=== PATIENT | female | born 1970 | race Two or more races ===

== ENCOUNTER 2017-06-13 00:15 | Emergency (ER) | payer MEDICAID ==
[~2017-06-13] VITALS: Ht 157.5 cm; Wt 72.6 kg
[~2017-06-13 00:15] MED LIST: AMITRIPTYLINE100 MG ORAL; FAMOTIDINE20 MG ORAL; FLUOXETINE HCL10 MG ORAL; GABAPENTIN600 MG ORAL; KEFLEX500 MG ORAL; PROZAC10 MG ORAL; TRAZODONE HCL100 MG ORAL
--- NOTE | 2017-06-13 00:19 | Emergency Room Report ---
History of Present Illness General Chief Complaint: Altered Level of Consciousness Source: Medical Record, EMS Present Illness HPI Is a 47-year-old female with history of diabetes and high blood pressure. She presents with chief complaint of altered mental status. She was found unresponsive at a nearby bus stop. There were 5 or 6 empty cans of beer next to her. EMS brought her in for evaluation. Unable to get any history from this patient. She was just here last month for alcohol intoxication and hyperglycemia. I also found to cans of beer in her purse along with her IDs and medication. Allergies: Coded Allergies: No Known Allergies (Unverified , 05/29/17) UNABLE TO ASSESS (Unverified , 06/13/17) Patient History Past Medical History: see triage record, old chart reviewed, DM, HTN Past Surgical History: other Pertinent Family History: none Social History: Reports: alcohol use; Denies: smoking Now: No Immunizations: other Reviewed Nursing Documentation: PMH: Agreed; PSxH: Agreed Nursing Documentation-PMH Past Medical History Deferred: Pt Cognitively Impaired Hx Diabetes: Yes Review of Systems All Other Systems: limited - Secondary to severe intoxication Physical Exam Vital Signs Date Time Temp Pulse Resp B/P (MAP) Pulse Ox O2 Delivery O2 Flow Rate FiO2 06/13/17 00:04 99.7 88 18 130/90 98 Room Air 99.7 Sp02 EP Interpretation: reviewed, normal General Appearance: well appearing, no apparent distress, Stupor - Grimace to painful stimuli Head: normocephalic, atraumatic Eyes: bilateral eye PERRL, bilateral eye EOMI ENT: normal pharynx Neck: full range of motion, supple, no meningismus Respiratory: chest non-tender, lungs clear, normal breath sounds Cardiovascular #1: regular rate, rhythm, no murmur Gastrointestinal: normal bowel sounds, non tender, no mass, no organomegaly, no bruit, non-distended Musculoskeletal: back normal, normal range of motion, other - Left BKA Neurologic: grossly normal Psychiatric: mood/affect normal Skin: warm/dry Medical Decision Making Diagnostic Impression: Primary Impression: Altered level of consciousness Additional Impressions: Alcohol intoxication Qualified Codes: F10.920 - Alcohol use, unspecified with intoxication, uncomplicated Hyperglycemia due to type 2 diabetes mellitus Qualified Codes: E11.65 - Type 2 diabetes mellitus with hyperglycemia ER Course She slept through the night. Now she is up walking around without any difficulty. No slurred speech. No ataxia. Said she was to go home. CT/MRI/US Diagnostic Results CT/MRI/US Diagnostic Results : Imaging Test Ordered: ct head Impression Neg per radiologist. Last Vital Signs Date Time Temp Pulse Resp B/P (MAP) Pulse Ox O2 Delivery O2 Flow Rate FiO2 06/13/17 00:04 99.7 88 18 130/90 98 Room Air 99.7 Status: improved Disposition: HOME, SELF-CARE Condition: Stable Additional Instructions: Follow-up with your doctor in 7 days. Stop drinking alcohol. Go to rehabilitation. Return if worse. NANCIE PRATHER M.D. June 13, 2017 00:19
[2017-06-13 00:30] VITALS: BP 112/71
[2017-06-13 00:52] LABS: BASOPHILS % (AUTO) 1.3 % (0.0-2.0); EOSINOPHILS % (AUTO) 0.3 % (0.0-3.0); HEMATOCRIT 41.4 % (37.0-47.0); HEMOGLOBIN 13.8 G/DL (12.0-16.0); LYMPHOCYTES % (AUTO) 30.5 % (20.0-45.0); MEAN CORPUSCULAR VOLUME 89 FL (80-99); MONOCYTES % (AUTO) 5.2 % (1.0-10.0); NEUTROPHILS % (AUTO) 62.7 % (45.0-75.0); PLATELET COUNT 435 K/UL (150-450); RED BLOOD COUNT 4.64 M/UL (4.20-5.40); RED CELL DISTRIBUTION WIDTH 13.5 % (11.6-14.8); WHITE BLOOD COUNT 8.4 K/UL (4.8-10.8)
[2017-06-13 01:08] LABS: ANION GAP 16 mmol/L (5-15); BLOOD UREA NITROGEN 10 mg/dL (7-18); CALCIUM 8.7 MG/DL (8.5-10.1); CARBON DIOXIDE 18 MMOL/L (21-32); CHLORIDE 94 MMOL/L (98-107); POTASSIUM 4.6 MMOL/L (3.5-5.1); SODIUM 128 MMOL/L (136-145)
[2017-06-13 01:47] VITALS: BP 114/78
[2017-06-13 02:59] VITALS: BP 107/72
[2017-06-13 05:19] VITALS: BP 91/61
[2017-06-13 06:42] VITALS: BP 110/72
[2017-06-13 08:45] VITALS: BP 118/79
--- NOTE | 2017-06-14 12:24 | Diagnostic Imaging Report ---
Indication: Altered mental status Technique: Contiguous 5 mm thick transaxial imaging of the head obtained in a Siemens Sensation [address] scanner. Soft tissue and bone windows generated. Automatic Exposure Control was utilized. Total Dose length Product (DLP): 1351.[address] Dose Index Volume (CTDIvol): 70.38 mGy Comparison: none Findings: There is mild prominence of the ventricles, basal cisterns, and cerebral sulci consistent with atrophy. Mild, nonspecific, white matter hypoattenuation is noted throughout the brain consistent with chronic small vessel disease. There is no midline shift, edema, acute hemorrhage, mass effect, or abnormal extra-axial fluid collections. Bones and extra osseous soft tissues are unremarkable. Impression: No acute intracranial bleed, mass effect or edema. Mild atrophy of the brain. Nonspecific white matter hypoattenuation probably due to chronic small vessel disease. [facility] has communicated the preliminary results to the Emergency Department. Their findings are largely concordant with this report. The CT scanner at [facility] is accredited by the [employer] and the scans are performed using dose optimization techniques as appropriate to a performed exam including Automatic Exposure control.
== END 2017-06-13 08:45 | disposition home or self-care (01) ==
LOC: EDBD 00:15 → EMR 00:36
DX: R41.82 Altered mental status, unspecified (principal); F10.129 Alcohol abuse with intoxication, unspecified; E11.65 Type 2 diabetes mellitus with hyperglycemia; G31.9 Degenerative disease of nervous system, unspecified
CPT/HCPCS: 36415; 70450; 80048; 80307; 80329; 82962; 85025; 96361; 96374; 96375; 99284; J1815